=== PATIENT | female | born 1995 | race Caucasian/White ===

== ENCOUNTER 2019-12-09 06:23 | Inpatient (IN) | payer OTHER ==
[~2019-12-09] VITALS: Ht 157.5 cm; Wt 103.0 kg
[2019-12-09] MEDS ORDERED: PRENATABS RX T1 EACH PO (07:42)
== END 2019-12-11 15:55 | disposition home or self-care (01) | DRG 807 ==
LOC: LDR 06:23 → OB/GYN 06:23
PROVIDERS: ADMIT Obstetrics & Gynecology
PROC: 10E0XZZ Delivery of Products of Conception, External Approach (ICD-10-PCS; principal; 2019-12-09)
PROC: 10907ZC Drainage of Amniotic Fluid, Therapeutic from Products of Conception, Via Natural or Artificial Opening (ICD-10-PCS; 2019-12-09)
PROC: 3E033VJ Introduction of Other Hormone into Peripheral Vein, Percutaneous Approach (ICD-10-PCS; 2019-12-09)
PROC: 4A1HXCZ Monitoring of Products of Conception, Cardiac Rate, External Approach (ICD-10-PCS; 2019-12-09)
DX: O80 Encounter for full-term uncomplicated delivery (principal); Z37.0 Single live birth; Z3A.39 39 weeks gestation of pregnancy; Z22.330 Carrier of Group B streptococcus

== ENCOUNTER 2024-10-07 10:06 | Inpatient (IN) | payer OTHER ==
[~2024-10-07] VITALS: Ht 167.6 cm; Wt 106.6 kg
[2024-10-07] VITALS (8 sets, daily range): BP systolic 102–129; BP diastolic 59–82; O2SAT 99
[~2024-10-07 10:06] MED LIST: PRENATABS RX T1 EACH PO
[2024-10-07] MEDS ORDERED: OXYTOCIN 20 UNITS/500ML RL PIGGYBAG IV SCH (11:00)
[2024-10-07 12:06] LABS: URINE APPEARANCE Cloudy; URINE BILIRRUBIN Negative (NEGATIVE); URINE BLOOD Negative; URINE COLOR Dark Yellow; URINE GLUCOSE Negative (NEGATIVE); URINE KETONE 15 (NEGATIVE); URINE LEUKOCYTE Moderate; URINE NITRATE Negative; URINE PROTEIN Negative (NEGATIVE)
[2024-10-07 12:09] LABS: URINE BACTERIA 3496.3 uL (0.0-1933); URINE EPITHELIAL CELLS 82.8 uL (0.0-38.8); URINE RBC 26.8 uL (0.0-20.8); URINE WBC 207.6 uL (0.0-23.2)
[2024-10-07 12:31] LABS: URINE CAST 0.45 uL (0.0-1.40)
[2024-10-07 12:32] LABS: URINE YEAST MODERATE /hpf
[2024-10-07 12:34] LABS: HEMOGLOBIN 11.8 g/dL (12.0-15.00); MEAN CORPUSCULAR HEMOGLOBIN 29.3 pg (27.00-32.0); MEAN CORPUSCULAR HGB CONC 33.6 g/dl (32.0-36.0); PLATELET COUNT 252 K/uL (150-450); RED BLOOD COUNT 4.02 M/uL (4.00-6.00); RED CELL DISTRIBUTION WIDTH 13.1 % (11.5-14.5)
[2024-10-07 12:43] LABS: INR 0.95; PARTIAL THROMBOPLASTIN TIME 25.4 SECONDS (22.0-34.0); PROTHROMBIN TIME 10.4 SECONDS (9.0-11.5)
[2024-10-07] MEDS ORDERED: MEPERIDINE HCL/PF 25 MG/ML VIAL IV ONE (18:00)
[2024-10-07] MEDS ORDERED: PROMETHAZINE HCL 25 MG/ML AMPUL IV ONE (18:00)
[2024-10-07] MEDS ORDERED: OXYTOCIN 1,000 ML IV SCH (20:00)
[2024-10-07] MEDS ORDERED: ACETAMINOPHEN 500 MG GEL..CAP PO PRN (20:00)
[2024-10-07] MEDS ORDERED: CHLORHEXIDINE GLUCONATE 120 ML BOTTLE TOP SCH (20:00)
[2024-10-07] MEDS ORDERED: ERYTHROMYCIN BASE OPHT 1GM EACH TUBE OP ONE (21:15)
[2024-10-08 00:37] LABS: HEMATOCRIT 33.4 % (36.0-45.00); MEAN CELL VOLUME 87.2 fL (80.00-100.00); MEAN CORPUSCULAR HEMOGLOBIN 28.8 pg (27.00-32.0); PLATELET COUNT 230 K/uL (150-450); RED BLOOD COUNT 3.83 M/uL (4.00-6.00); RED CELL DISTRIBUTION WIDTH 13.1 % (11.5-14.5)
[2024-10-08 02:51] VITALS: BP 114/76
[2024-10-08 09:00] VITALS: BP 128/80
[2024-10-08] MEDS ORDERED: PNV,CALCIUM 72/IRON/FOLIC ACID 1 TAB TABLET PO SCH (09:00)
[2024-10-08 16:28] VITALS: BP 111/79
[2024-10-09 01:14] VITALS: BP 120/80
[2024-10-09 09:31] VITALS: BP 124/87
[2024-10-09 14:01] VITALS: BP 100/60
[2024-10-09 16:06] VITALS: BP 121/80
== END 2024-10-09 17:19 | disposition home or self-care (01) | DRG 807 ==
LOC: LDR 10:06 → OB/GYN 10:06 → LDR 14:03 → OB/GYN 22:31
PROVIDERS: ADMIT Obstetrics & Gynecology; ATTEND Obstetrics & Gynecology
PROC: 10E0XZZ Delivery of Products of Conception, External Approach (ICD-10-PCS; principal; 2024-10-07)
PROC: 4A1HXCZ Monitoring of Products of Conception, Cardiac Rate, External Approach (ICD-10-PCS; 2024-10-07)
DX: O80 Encounter for full-term uncomplicated delivery (principal); Z37.0 Single live birth; Z3A.38 38 weeks gestation of pregnancy; Z20.822 Contact with and (suspected) exposure to COVID-19